=== PATIENT | male | born 1955 | race Caucasian/White ===

== ENCOUNTER → 2023-10-17 08:59 | Outpatient (BNVA) | payer MEDICARE, BC, SELFPAY | PROVIDERS: PCP Family Medicine; Referring Provider Family Medicine; Visit Provider Psychiatry & Neurology Neurology | DX: K76.82 Hepatic encephalopathy (principal); K76.9 Liver disease, unspecified; E55.9 Vitamin D deficiency, unspecified | CPT/HCPCS: 36415; 82140; 82306; 82607; 82746; 83921; 99203 ==

== ENCOUNTER → 2023-11-15 11:50 | Outpatient (BNVA) | payer MEDICARE, BC, SELFPAY | PROVIDERS: PCP Family Medicine; Visit Provider Psychiatry & Neurology Neurology | DX: K76.82 Hepatic encephalopathy (principal) | CPT/HCPCS: 95812; 95816 ==

== ENCOUNTER → 2023-11-28 12:38 | Outpatient (BNVA) | payer MEDICARE, BC, SELFPAY | PROVIDERS: PCP Family Medicine; Visit Provider Psychiatry & Neurology Neurology | DX: K76.82 Hepatic encephalopathy (principal); R94.01 Abnormal electroencephalogram [EEG] | CPT/HCPCS: 99212 ==